=== PATIENT | female | born 1940 | race Caucasian/White ===

== ENCOUNTER → 2020-11-06 | Outpatient (CLI) | payer OTHER ==
[~2020-11-06] MED LIST: APIX5TAB PO; ATO40T PO; CHOL20007 PO; CYA100I PO; FURO1TAB31 PO; METF-929 PO; METO1TAB77 PO
== END | disposition home or self-care (01) ==
LOC: EDBD 14:56 → XYW 14:56
PROVIDERS: ATTEND Internal Medicine
DX: I08.1 Rheumatic disorders of both mitral and tricuspid valves (principal); I48.91 Unspecified atrial fibrillation; R07.9 Chest pain, unspecified
CPT/HCPCS: 93306